=== PATIENT | male | born 1950 | race Caucasian/White ===

== ENCOUNTER → 2023-12-21 12:41 | Outpatient (REF) | payer MEDICARE, SELFPAY | LOC: RAD 12:41 | PROVIDERS: ATTENDING PHYSICIAN Surgery Vascular Surgery | DX: I73.9 Peripheral vascular disease, unspecified (principal) | CPT/HCPCS: 93922; 93925 ==

== ENCOUNTER → 2025-02-18 09:55 | Outpatient (REF) | payer MEDICARE, SELFPAY | LOC: HWRAD 09:55 | PROVIDERS: ATTENDING PHYSICIAN Surgery Vascular Surgery | DX: I65.29 Occlusion and stenosis of unspecified carotid artery (principal) | CPT/HCPCS: 93880 ==

== ENCOUNTER → 2025-02-19 12:37 | Outpatient (REF) | payer MEDICARE, SELFPAY | LOC: RAD 12:37 | PROVIDERS: ATTENDING PHYSICIAN Surgery Vascular Surgery | DX: I73.9 Peripheral vascular disease, unspecified (principal) | CPT/HCPCS: 93922; 93925 ==